=== PATIENT | male | born 1960 | race Caucasian/White ===

== ENCOUNTER 2019-04-03 11:13 | Inpatient (IN) | payer OTHER ==
--- OUTSIDE RECORDS SUMMARY | 2019-04-03 11:28 | XMS REPORT ---
:1960 [facility] [address] [place] [address] Dr. Rivera [address] [place] [id number] Care Team Providers Name Role Phone Unavailable Unavailable Unavailable Problems This patient has no known problems. Allergies, Adverse Reactions, Alerts This patient has no known allergies or adverse reactions. Medications This patient has no known medications.
[2019-04-03 11:38] VITALS: BMI 35.2
[2019-04-03] MEDS ORDERED: ONDANSETRON 4 MG/2 ML VIAL IV PRN (12:04)
[2019-04-03] MEDS ORDERED: ACETAMINOPHEN 500 MG TAB PO PRN (12:04)
[2019-04-03] MEDS ORDERED: VANCOMYCIN/NS 1 gm 1 GM/250 ML BAG IVPB SCH (12:15)
[2019-04-03 12:21] LABS: Urine Appearance CLEAR; Urine Bilirubin NEGATIVE (NEG); Urine Blood NEGATIVE (NEG); Urine Color YELLOW; Urine Glucose 3+ (NEG); Urine Protein NEGATIVE (NEG); Urine Urobilinogen 0.2 mg/dL (0.2-1.0); Urine pH 5.5 (5.0-7.0)
[2019-04-03 12:32] LABS: Urine Microscopic Reflex NO UMIC
[2019-04-03] MEDS ORDERED: OMEPRAZOLE PO PRN (12:36)
[2019-04-03] MEDS ORDERED: ALPRAZOLAM 1 MG TABLET PO PRN ×2 (12:36→19:43)
[2019-04-03] MEDS ORDERED: TRAMADOL HCL 50 MG TAB PO PRN (12:36)
[2019-04-03] MEDS ORDERED: SODIUM BICARBONATE PO PRN (12:36)
[2019-04-03] MEDS ORDERED: CYCLOBENZAPRINE 10 MG TAB PO PRN (12:36)
[2019-04-03] MEDS ORDERED: D50W 25 GM/50 ML SYRINGE IV PRN (12:37)
[2019-04-03] MEDS ORDERED: GLUCAGON 1 MG/VIAL IM PRN (12:37)
[2019-04-03] MEDS: MORPHINE 2 MG/ML SYR IV PRN ×3 (12:44→20:55)
[2019-04-03] MEDS: NA CHLORIDE 0.9% 1,000 ML IV SCH (12:44)
[2019-04-03] MEDS ORDERED: CEFEPIME/SWI 2gm 2 GM/20 ML SYR IV ONE (12:45)
[2019-04-03 12:49] LABS: Absolute Lymphocytes (CBC) 1.9 K/uL (0.7-4.9); Basophils % 0.7 % (0-1.3); Hematocrit 41.1 % (39.6-49.0); MPV 8.1 fL (7.6-11.3); RBC Red Blood Cell Count 4.48 M/uL (4.33-5.43)
[2019-04-03 12:55] LABS: Protime INR 1.11
[2019-04-03] MEDS ORDERED: VANCOMYCIN 2 GM in NA CHLORIDE 0.9% 500 ML IVPB ONE (13:00)
[2019-04-03 13:07] LABS: Potassium 3.8 mmol/L (3.5-5.1)
[2019-04-03] MEDS: INSULIN GLARGINE 100 UNITS/ML SQ SCH (13:19)
--- NOTE | 2019-04-03 13:20 | RAD REPORT ---
EXAM DESCRIPTION: RAD - Chest Single View - 04/03/2019 1:15 pm CLINICAL HISTORY: cough Chest pain. COMPARISON: Chest Pa And Lat (2 Views) dated 11/18/2018; Chest Pa And Lat (2 Views) dated 07/20/2016; CHEST PA AND LAT 2 VIEW dated 11/01/2015 FINDINGS: Portable technique limits examination quality. The lungs are grossly clear. The heart is normal in size. No displaced fractures. IMPRESSION: No acute intrathoracic process suspected.
--- NOTE | 2019-04-03 13:21 | RAD REPORT ---
EXAM DESCRIPTION: RAD - Foot Right 2 View - 04/03/2019 1:14 pm CLINICAL HISTORY: diabetic foot infection 5th toe, r/out free air COMPARISON: Foot Right 3 View dated 10/24/2018; Foot Right 3 View dated 06/13/2018 FINDINGS: Large soft tissue wound is seen along lateral margin the fifth toe. Demineralization along the base of the distal phalanx of the toe laterally is noted likely indicating osteomyelitis. No sub cutaneous gas is seen.
[2019-04-03] MEDS ORDERED: INSULIN -REGULAR HUMAN 50 UNIT/0.5 ML ML SQ SCH (16:30)
[2019-04-03] MEDS: glipiZIDE 5 MG TAB PO SCH (16:59)
[2019-04-03] MEDS: INSULIN -REGULAR HUMAN 50 UNIT/0.5 ML ML SQ SCH ×2 (17:00→20:59)
[2019-04-03] MEDS: CEFEPIME/SWI 2gm 2 GM/20 ML SYR IV SCH (20:55)
[2019-04-03] MEDS: ROSUVASTATIN 10 MG TAB PO SCH (20:55)
[2019-04-03] MEDS ORDERED: CEFEPIME 2 GM VIAL IV SCH (21:00)
[2019-04-04] MEDS: MORPHINE 2 MG/ML SYR IV PRN ×2 (01:41→06:44)
[2019-04-04] MEDS: NA CHLORIDE 0.9% 1,000 ML IV SCH ×3 (01:50→19:00)
--- NOTE | 2019-04-04 02:42 | HP ---
Date of Admission: 04/03/2019 Chief Complaint: Diabetic foot wound on the right. Consultants: Dr. Blanca with Podiatry. Primary Care Physician: Kev Bearden M.D. History Of Present Illness: Patient is a 58-year-old male with past medical history of diabetes, ERIC D, who was in his usual state of health until day of admission when the patient was at wound healing center appointment with Dr. Blanca for his wound on the 5th toe of the right foot. Patient had a beds nadia debridement done by Dr. Blanca; however, he felt that this wound would likely require further surg ical debridement or possible amputation of the 5th digit. Therefore, patient was sent to the [facility] for direct admission for further treatment and workup. Patient does report some drainage, pain, an d redness around the foot and toe, which has been ongoing for the past several days. Patient has not been on antibiotics at home. Patient's symptoms were constant, moderate, progressively worsening. Patient's workup revealed white count of 13,000. Sodium was 133 and glucose of 420. When the patien t was seen, he was awake, alert, oriented x3, in some mild distress. Past Medical History: Diabetes mellitus type 2, insulin requiring. GERD. Surgical History: Right toe great amputation. Right lower extremity tibia-fibula surgery, patient h as titanium rods. Cholecystectomy. Appendectomy. Allergies: NO KNOWN DRUG ALLERGIES. Medications: List reviewed. Social History: Patient denies any tobacco use, alcohol use, or illicit drug use. Patient is marrie d. Family History: Father had heart disease and colon cancer. Mom had hypertension. Review of Systems: Ten-point system reviewed, negative except as per HPI. Physical Examination: Vital Signs: Temperature 98.1, heart rate 91, blood pressure 119/54, respirations 20, O2 98% on room air. General: Awake, alert, oriented x3. Obese male. Slightly ill-appearing. HEENT: Normocephalic, atraumatic. PERRLA. EOMI. Moist mucous membranes. Oropharynx is clear. No rmal dentition. Conjunctivae are anicteric. Neck: Supple. No JVD. Trachea midline. CV: S1, S2. Regular rate and rhythm. Peripheral pulses present. Respiratory: Moving air well bilaterally. No wheezing or stridor. No use of accessory muscles. Gastrointestinal: Abdomen is soft, nontender, nondistended. Positive bowel sounds. No guarding or rigidity. Extremities: No clubbing, cyanosis. Right pedal edema. No calf tenderness. Neurologic: Cranial nerves 2 through 12 intact grossly. No focal neurological deficit. Speech is n ormal. Skin: Right foot great toe amputation, 5th digit ulceration with surrounding erythema. Psychiatric: Mood is okay. Affect is full. Insight and judgment are good. Laboratory Data: UA is negative. Sodium 133, potassium 3.8, chloride 97, CO2 of 26, BUN 11, creatin ine 1.23, glucose 420, calcium 9. INR 1.11. WBC 13.6, H and H 13.9 and 41.1, platelets 279, neutrop hils 77%. Wound cultures and blood cultures obtained. Wound cultures are from wound healing center. Imaging Studies: Foot x-ray shows large soft tissue wound seen along the lateral margin of the 5th t oe, demineralization along the base of the distal phalanx of the toe laterally is noted likely indica ting osteomyelitis, no subcutaneous gas is seen. Chest x-ray shows no acute intrathoracic process. Assessment And Plan: 58-year-old male with: 1.Right 5th toe diabetic ulcer with osteomyelitis seen on plain films. We will continue with broad- spectrum IV antibiotics including vancomycin and cefepime. We will obtain blood cultures and wound c ultures. Dr. Blanca with Podiatry has been consulted. Patient will likely need amputation of the 5th digit. Anticipate surgery in a.m. Patient does have elevated white blood cell count and may need l nora-term IV antibiotics. 2.Hyponatremia, likely pseudohyponatremia from elevated blood glucose level. Continue to monitor. 3.Cellulitis of the right foot. Continue IV antibiotics. Follow up on cultures secondary to diabet ic ulcer. 4.Diabetes mellitus, type 2, insulin requiring with foot infection, ulceration, and hyperglycemia. We will resume home dose of insulin and start on aggressive sliding scale. We will check hemoglobin A1c. Patient has been counseled. 5.Gastroesophageal reflux disease without esophagitis, stable. 6.Obesity, BMI 35. Plan: DVT prophylaxis with Lovenox. Admit patient to Med-Surg, place as inpatient. Length of stay greater than 2 midnights. Anticipate possible long-term IV antibiotics if no amputation is done. Bob cordoba will also need PICC line. We will discuss further with Dr. Blanca. MACKENZIE Voice ID: [id number]
[2019-04-04 04:21] LABS: Absolute Lymphocytes (CBC) 1.7 K/uL (0.7-4.9); Basophils % 0.5 % (0-1.3); Hematocrit 38.6 % (39.6-49.0); Lymphocytes % 16.8 % (15.3-44.8); RBC Red Blood Cell Count 4.23 M/uL (4.33-5.43)
[2019-04-04 04:26] LABS: BUN Blood Urea Nitrogen 9 mg/dL (7-18); Bicarbonate 26 mmol/L (21-32); Glucose Level 182 mg/dL (74-106); Potassium 3.5 mmol/L (3.5-5.1); Sodium Level 139 mmol/L (136-145)
[2019-04-04] MEDS ORDERED: VANCOMYCIN 2 GM in NA CHLORIDE 0.9% 500 ML IVPB SCH (06:00)
[2019-04-04] MEDS ORDERED: LIDOCAINE 1% 20 ML MDV ONE (07:23)
[2019-04-04] MEDS: INSULIN -REGULAR HUMAN 50 UNIT/0.5 ML ML SQ SCH ×4 (07:30→21:27)
[2019-04-04] MEDS ORDERED: LIDOCAINE 2% MPF 5 ML VIAL ONE (07:38)
[2019-04-04] MEDS ORDERED: PROPOFOL 200 MG/20 ML VIAL IV ONE (07:38)
[2019-04-04] MEDS ORDERED: FENTANYL CITR 100 MCG/2 ML ONE (07:38)
[2019-04-04] MEDS ORDERED: MIDAZOLAM HCL 2 MG/2 ML INJ ONE ×2 (07:39)
[2019-04-04] MEDS ORDERED: ONDANSETRON 4 MG/2 ML VIAL ONE (07:39)
[2019-04-04] MEDS: glipiZIDE 5 MG TAB PO SCH ×2 (08:00→16:36)
[2019-04-04] MEDS: INSULIN GLARGINE 100 UNITS/ML SQ SCH (08:00)
--- NOTE | 2019-04-04 08:25 | P.OP ---
Preoperative diagnosis: right fifth digit abscess with osteomyelitis Postoperative diagnosis: same Primary procedure: right fifth digit amputation Anesthesia: mac with 10cc 1:1 0.5% marcaine 1% lidocaine plain Estimated blood loss: <10cc Specimen: bone for pathology Findings: as above Operative Technique: Patient was sedated by nurse road traffic controller and local anesthesia consisting of 10cc 1:1 0.5% marcaine 1% lidocaine plain was injected right lower extremity. Patient was prepped and draped in the usual aseptic manner. Right lower extremity exsanguinated utilizing esmarch bandage and PAT inflated to 250mmHg. Attention directed to right fifth digit at which time cellulitis extending to right midfoot as well as ecchymotic and edematous right fifth digit with ulcertion probing to bone. At this time a racket incision was placed at the base of the fifth digit and the incision was carried straight to bone. At this time utilizing sharp and blunt disection the digit was disarticulated from the mpj. Following this all nonviable tissue was sharply excised utilizing an 15 blade then the wound was irrigated with nss. the wound was packed with 1/2 inch iodoform gauze and a dressing consisting of 4X4s, ABD, Kerlix and ashley wrap applied. PAT deflated with prompt hyperemic response to right lower extremity. PAtient was transferred from OR to recovery with VSS. Complications: None Transferred to: Recovery Room Condition: Good
[2019-04-04] MEDS: HYDROMORPHONE HCL 1 MG/ML INJ ONE ×2 (08:31→08:45)
[2019-04-04] MEDS: SODIUM BICARBONATE PO SCH (09:00)
[2019-04-04] MEDS: OMEPRAZOLE PO SCH (09:00)
[2019-04-04] MEDS: IRBESARTAN 150 MG TAB PO SCH (09:00)
[2019-04-04] MEDS: CETIRIZINE HCL 5 MG TABLET PO SCH (09:00)
[2019-04-04] MEDS: CEFEPIME/SWI 2gm 2 GM/20 ML SYR IV SCH ×2 (09:15→20:35)
--- NOTE | 2019-04-04 11:23 | EKG ---
Test Date: 2019-04-03 Test Time: 13:56:32 Research Quality Assurance Analyst: AM MEASUREMENT RESULTS: Intervals: Rate: 86 WY: 172 QRSD: 126 QT: 384 QTc: 459 [place]: P: 79 W[place]: 172 QRS: 62 T: 55 INTERPRETIVE STATEMENTS: Normal sinus rhythm Nonspecific intraventricular block Abnormal ECG Compared to ECG 07/20/2016 11:31:43 Incomplete right bundle-branch block no longer present Electronically Signed On 04-04-19 11:19:36 CDT by Neal Zee
[2019-04-04] MEDS: HYDROMORPHONE HCL 1 MG/ML INJ IV PRN ×3 (12:12→23:45)
--- NOTE | 2019-04-04 14:35 | P.PN ---
Subjective Date of Service: 04/04/19 Patient seen and examined at bedside. No family at bedside. Chart reviewed and case discussed with nursing staff. Complains of pain in the toe, no other concerns or complaints at this time. Review of Systems 10-point ROS is otherwise unremarkable Physical Examination - Vital Signs Temperature: 97.8 F Blood Pressure: 115/53 Pulse: 84 Respirations: 18 Pulse Ox (%): 98 - Physical Exam General: Alert, In no apparent distress, Oriented x3 HEENT: Atraumatic, PERRLA, EOMI Neck: Supple, JVD not distended Respiratory: Clear to auscultation bilaterally, Normal air movement Cardiovascular: Regular rate/rhythm, Normal S1 S2 Gastrointestinal: Normal bowel sounds, No tenderness Musculoskeletal: No tenderness Integumentary: Other (Status post amputation of 5th toe) Neurological: Normal speech, Normal tone, Normal affect Lymphatics: No axilla or inguinal lymphadenopathy - Studies Laboratory Data (last 24 hrs) 04/04/19 03:41: Sodium 139, Potassium 3.5, BUN 9, Creatinine 0.85, Glucose 182 H 04/04/19 03:41: WBC 10.0 D, Hgb 13.4 L, Hct 38.6 L, Plt Count 262 Assessment And Plan - Plan 58-year-old male with: Right 5th toe diabetic ulcer with osteomyelitis seen on plain films. -We will continue with broad-spectrum IV antibiotics including vancomycin and cefepime. -We will follow up on blood cultures and wound cultures. -Dr. Blanca with Podiatry has been consulted. Patient will status post amputation of the 5th digit, POD#0. -he will return back to the OR on with Dr. Blanca Hyponatremia Resolved likely pseudohyponatremia from elevated blood glucose level. -Continue to monitor. Cellulitis of the right foot. Continue IV antibiotics. Follow up on cultures secondary to diabetic ulcer. Diabetes mellitus, type 2, insulin requiring with foot infection, ulceration, and hyperglycemia. We will resume home dose of insulin and start on aggressive sliding scale. We will check hemoglobin A1c. Patient has been counseled. Gastroesophageal reflux disease without esophagitis, stable. Obesity, BMI 35. DVT prophylaxis with Lovenox. Plan: Pending symptomatic improvement, return to the operating room on . Further IV antibiotic plans will depend on cultures as well as improvement.
[2019-04-04] MEDS: HYDROCODONE/APAP 7.5/325 MG TAB PO PRN ×2 (16:35→20:35)
[2019-04-04] MEDS: VANCOMYCIN 2 GM in NA CHLORIDE 0.9% 500 ML IVPB SCH (17:40)
[2019-04-04] MEDS: ROSUVASTATIN 10 MG TAB PO SCH (20:38)
[2019-04-05] MEDS: HYDROCODONE/APAP 7.5/325 MG TAB PO PRN ×4 (03:38→20:26)
[2019-04-05 04:32] LABS: Potassium 4.1 mmol/L (3.5-5.1)
[2019-04-05 04:43] LABS: Absolute Lymphocytes (CBC) 2.1 K/uL (0.7-4.9); Basophils % 0.4 % (0-1.3); Hematocrit 36.1 % (39.6-49.0); Lymphocytes % 24.6 % (15.3-44.8); MPV 8.3 fL (7.6-11.3); RBC Red Blood Cell Count 3.92 M/uL (4.33-5.43)
[2019-04-05] MEDS: NA CHLORIDE 0.9% 1,000 ML IV SCH ×3 (05:00→15:00)
[2019-04-05] MEDS: VANCOMYCIN 2 GM in NA CHLORIDE 0.9% 500 ML IVPB SCH ×2 (06:05→17:52)
[2019-04-05] MEDS: HYDROMORPHONE HCL 1 MG/ML INJ IV PRN ×4 (06:08→22:18)
[2019-04-05] MEDS: IRBESARTAN 150 MG TAB PO SCH (08:53)
[2019-04-05] MEDS: glipiZIDE 5 MG TAB PO SCH ×2 (08:53→17:17)
[2019-04-05] MEDS: INSULIN -REGULAR HUMAN 50 UNIT/0.5 ML ML SQ SCH ×4 (08:53→20:43)
[2019-04-05] MEDS: INSULIN GLARGINE 100 UNITS/ML SQ SCH (08:54)
[2019-04-05] MEDS: CEFEPIME/SWI 2gm 2 GM/20 ML SYR IV SCH ×2 (08:54→20:26)
[2019-04-05] MEDS: SODIUM BICARBONATE PO SCH (08:56)
[2019-04-05] MEDS: OMEPRAZOLE PO SCH (08:56)
[2019-04-05] MEDS: CETIRIZINE HCL 5 MG TABLET PO SCH (09:06)
--- NOTE | 2019-04-05 11:12 | P.PN ---
Subjective Date of Service: 04/05/19 Subjective: No C/O voiced, Improving Patient seen and examined at bedside. No family at bedside. Chart reviewed and case discussed with nursing staff. Complains of pain in the toe; pain medications not adequate at this time. No Other concerns or complaints this morning. No acute events noted overnight. Review of Systems 10-point ROS is otherwise unremarkable Physical Examination - Vital Signs Temperature: 97.5 F Blood Pressure: 131/65 Pulse: 75 Respirations: 16 Pulse Ox (%): 97 - Physical Exam General: Alert, In no apparent distress, Oriented x3 HEENT: Atraumatic, PERRLA, EOMI Neck: Supple, JVD not distended Respiratory: Clear to auscultation bilaterally, Normal air movement Cardiovascular: Regular rate/rhythm, Normal S1 S2 Gastrointestinal: Normal bowel sounds, No tenderness Musculoskeletal: No tenderness Integumentary: Other (Bandage clean/dry/intact) Neurological: Normal speech, Normal tone, Normal affect Lymphatics: No axilla or inguinal lymphadenopathy - Studies Laboratory Data (last 24 hrs) 04/05/19 03:55: Sodium 139, Potassium 4.1, BUN 9, Creatinine 0.96, Glucose 195 H 04/05/19 03:35: WBC 8.3 D, Hgb 12.5 L, Hct 36.1 L, Plt Count 259 Assessment And Plan - Plan 58-year-old male with: Right 5th toe diabetic ulcer with osteomyelitis seen on plain films. -We will continue with broad-spectrum IV antibiotics including vancomycin and cefepime. -We will follow up on blood cultures and wound cultures. No growth 24 hr -Dr. Blanca with Podiatry has been consulted. Patient is status post amputation of the 5th digit, POD#1. -he will return back to the OR on with Dr. Blanca -pain medications adjusted Hyponatremia Resolved likely pseudohyponatremia from elevated blood glucose level. -Continue to monitor. Cellulitis of the right foot. Continue IV antibiotics. Follow up on cultures secondary to diabetic ulcer. Diabetes mellitus, type 2, insulin requiring with foot infection, ulceration, and hyperglycemia. We will resume home dose of insulin and start on aggressive sliding scale. Hemoglobin A1c elevated at 9.3. Patient has been counseled. Gastroesophageal reflux disease without esophagitis, stable. Obesity, BMI 35. DVT prophylaxis with Lovenox. Plan: Pending symptomatic improvement, return to the operating room on . Further IV antibiotic plans will depend on cultures as well as improvement.
--- NOTE | 2019-04-05 11:43 | P.PN ---
Subjective Date of Service: 04/05/19 Chief Complaint: s/p 1 day right fifth digit amputation Subjective: Tolerating diet, Doing well Review of Systems 10-point ROS is otherwise unremarkable Physical Examination - Vital Signs Temperature: 97.5 F Blood Pressure: 131/65 Pulse: 75 Respirations: 16 Pulse Ox (%): 97 - Physical Exam General: Alert, In no apparent distress, Oriented x3 Cardiovascular: No edema, Normal pulses Capillary refill: <2 Seconds Musculoskeletal: No clubbing, No swelling, No contractures, No erythema, No tenderness, No warmth Integumentary: Other (dressing removed right fifth digit. Decreased erythema and edema right foot. No purulence, no necrotic tissue. 100% granulation. Wound plantar right foot is stable and decreasing in depth. ) Neurological: Abnormal sensation - Studies Laboratory Data (last 24 hrs) 04/05/19 03:55: Sodium 139, Potassium 4.1, BUN 9, Creatinine 0.96, Glucose 195 H 04/05/19 03:35: WBC 8.3 D, Hgb 12.5 L, Hct 36.1 L, Plt Count 259 Assessment And Plan - Current Problems (Diagnosis) (1) Diabetic ulcer of right foot Current Visit: No Status: Acute - Plan Patient scheduled for closure of wound tomorrow morning. To be NPO past midnight.
[2019-04-05] MEDS: ROSUVASTATIN 10 MG TAB PO SCH (20:27)
[2019-04-06] MEDS: NA CHLORIDE 0.9% 1,000 ML IV SCH ×3 (00:35→11:00)
[2019-04-06] MEDS: HYDROCODONE/APAP 7.5/325 MG TAB PO PRN ×2 (00:35→12:29)
[2019-04-06 04:34] LABS: Absolute Lymphocytes (CBC) 2.1 K/uL (0.7-4.9); Hematocrit 37.5 % (39.6-49.0); Lymphocytes % 27.5 % (15.3-44.8); RBC Red Blood Cell Count 4.13 M/uL (4.33-5.43)
[2019-04-06 04:46] LABS: BUN Blood Urea Nitrogen 8 mg/dL (7-18); Bicarbonate 28 mmol/L (21-32); Glucose Level 186 mg/dL (74-106); Potassium 3.7 mmol/L (3.5-5.1); Sodium Level 140 mmol/L (136-145)
[2019-04-06] MEDS: HYDROMORPHONE HCL 1 MG/ML INJ IV PRN (05:30)
[2019-04-06] MEDS ORDERED: VANCOMYCIN 2.25 GM in NA CHLORIDE 0.9% 500 ML IVPB SCH (06:00)
[2019-04-06] MEDS ORDERED: PROPOFOL 200 MG/20 ML VIAL IV ONE (07:17)
[2019-04-06] MEDS ORDERED: LIDOCAINE 2% MPF 5 ML VIAL ONE (07:17)
[2019-04-06] MEDS ORDERED: FENTANYL CITR 100 MCG/2 ML ONE (07:17)
[2019-04-06] MEDS ORDERED: MIDAZOLAM HCL 2 MG/2 ML INJ ONE (07:17)
[2019-04-06] MEDS ORDERED: LIDOCAINE 1% MPF 30 ML VIAL ONE (07:24)
[2019-04-06] MEDS ORDERED: NA CHLORIDE 0.9% 1,000 ML ONE (07:35)
[2019-04-06] MEDS ORDERED: ROCURONIUM 50 MG/5 ML VIAL IV ONE (07:41)
[2019-04-06] MEDS ORDERED: BUPIVACAINE 0.5% PF 10 ML VIAL ONE (07:44)
[2019-04-06] MEDS ORDERED: GLYCOPYRROLATE 0.2 MG/ML SYR ONE (08:11)
[2019-04-06] MEDS ORDERED: NEOSTIGMINE 1 MG/ML -10 ML VIAL ONE (08:14)
[2019-04-06] MEDS ORDERED: ONDANSETRON 4 MG/2 ML VIAL ONE (08:25)
--- NOTE | 2019-04-06 08:25 | P.OP ---
Preoperative diagnosis: right foot abscess Postoperative diagnosis: same Primary procedure: right foot wound closure via advancement flap Anesthesia: general with 10cc 0.5% marcaine Estimated blood loss: <10cc Specimen: none Findings: as above Operative Technique: Patient was sedated by nurse gas manager and placed under general anesthesia. Extremity was prepped and draped in the usual aseptic manner. Attention was directed to lateral aspect of right foot where previous amputation was performed. The wound was irrigated with normal sterile saline and revision of the medial and lateral flap was performed as well as undermining to allow for closure without tension. Closure obtained utilizing 2-0 and 3-0 prolene. A sterile dressing consisting of adaptic, 4X4s, Kerlix and ashley wrap was applied. Patient was transferred from OR to recovery with VSS Complications: None Transferred to: Recovery Room Condition: Good
[2019-04-06] MEDS: OMEPRAZOLE PO SCH (09:00)
[2019-04-06] MEDS: SODIUM BICARBONATE PO SCH (09:00)
[2019-04-06] MEDS: IRBESARTAN 150 MG TAB PO SCH (10:03)
[2019-04-06] MEDS: INSULIN -REGULAR HUMAN 50 UNIT/0.5 ML ML SQ SCH ×2 (10:04→12:30)
[2019-04-06] MEDS: CETIRIZINE HCL 5 MG TABLET PO SCH (10:04)
[2019-04-06] MEDS: glipiZIDE 5 MG TAB PO SCH (10:04)
[2019-04-06] MEDS: INSULIN GLARGINE 100 UNITS/ML SQ SCH (10:05)
[2019-04-06] MEDS: CEFEPIME/SWI 2gm 2 GM/20 ML SYR IV SCH (10:14)
[2019-04-06 11:54] VITALS: BP 133/66; TEMP 97
[2019-04-06 14:27] VITALS: O2SAT 96
--- NOTE | 2019-04-08 12:00 | P.DS ---
Admission Date: 04/03/19 Discharge Date: 04/06/19 Disposition: ROUTINE DISCHARGE Discharge Condition: GOOD Reason for Admission: s/p 1 day right fifth digit amputation Consultations: Dr. Blanca, Podiatry Procedures: 04/04/2019: Right 5th great toe amputation 04/06/2019: Right 5th great toe, wound closure Brief History of Present Illness: Patient is a 58-year-old male with past medical history of diabetes, GERD, who was in his usual state of health until day of admission when the patient was at wound healing center appointment with Dr. Blanca for his wound on the 5th toe of the right foot. Patient had a bedside debridement done by Dr. Blanca; however, he felt that this wound would likely require further surgical debridement or possible amputation of the 5th digit. Therefore, patient was sent to the hospital for direct admission for further treatment and workup. Patient does report some drainage, pain, and redness around the foot and toe, which has been ongoing for the past several days. Patient has not been on antibiotics at home. Patient's symptoms were constant, moderate, progressively worsening. Patient's workup revealed white count of 13,000. Sodium was 133 and glucose of 420. When the patient was seen, he was awake, alert, oriented x3, in some mild distress. Hospital Course: Patient was admitted for right 5th toe diabetic ulcer with osteomyelitis though seen on plain films. He was started on IV antibiotics with vancomycin and cefepime. Podiatry was consulted, patient underwent right 5th great toe amputation. He tolerated the procedure well. He was monitored in the hospital and patient returned back to the OR for wound closure prior to discharge. He also tolerated the procedure well. His symptoms improved. He was then discharged home on oral antibiotics, Levaquin 500 q.day for 10 days. His cultures did remain negative. He will follow up with Dr. Blanca in his clinic in a couple of weeks. He otherwise did well throughout the stay. Prior to discharge, he was alert oriented x3, in no acute distress and doing well clinically. He was cleared for discharge by podiatry. His diagnoses/treatment plan was explained to him, all questions were answered and he verbalized understanding. He was then discharged home in a safe stable manner. Vital Signs/Physical Exam: Temp Pulse Resp BP Pulse Ox 97 F 82 18 133/66 96 04/06/19 11:52 04/06/19 11:52 04/06/19 13:29 04/06/19 11:52 04/06/19 13:29 General: Alert, In no apparent distress HEENT: Atraumatic, PERRLA, EOMI Neck: Supple, JVD not distended Respiratory: Clear to auscultation bilaterally, Normal air movement Cardiovascular: Regular rate/rhythm, Normal S1 S2 Gastrointestinal: Normal bowel sounds, No tenderness Musculoskeletal: No tenderness Integumentary: No rashes Neurological: Normal speech, Normal tone, Normal affect Lymphatics: No axilla or inguinal lymphadenopathy Laboratory Data at Discharge: WBC 7.6 K/uL (4.3-10.9) 04/06/19 03:54 Hgb 13.4 g/dL (13.6-17.9) L 04/06/19 03:54 Hct 37.5 % (39.6-49.0) L 04/06/19 03:54 Plt Count 278 K/uL (152-406) 04/06/19 03:54 PT 13.1 SECONDS (9.5-12.5) H 04/03/19 12:20 INR 1.11 04/03/19 12:20 Sodium 140 mmol/L (136-145) 04/06/19 03:54 Potassium 3.7 mmol/L (3.5-5.1) 04/06/19 03:54 BUN 8 mg/dL (7-18) 04/06/19 03:54 Creatinine 0.78 mg/dL (0.55-1.3) 04/06/19 03:54 Glucose 186 mg/dL (74-106) H 04/06/19 03:54 Home Medications: Tramadol HCl [Ultram] 50 mg PO Q8H PRN #30 tablet 07/19/16 ALPRAZolam [Xanax] 1 mg PO PRN PRN MDD 1mg 04/25/18 Insulin Degludec [Tresiba Flextouch U-100] 30 unit SQ AC 04/25/18 Metformin HCl [Metformin HCl ER] 1,000 mg PO BID 04/25/18 glipiZIDE [Glipizide] 5 mg PO BID 04/25/18 Cetirizine HCl [Zyrtec] 5 mg PO DAILY 04/03/19 Cyclobenzaprine [Flexeril] 10 mg PO TID PRN 04/03/19 Irbesartan [Avapro] 150 mg PO DAILY 04/03/19 Omeprazole/Sodium Bicarbonate [Zegerid 20 mg Capsule] 1 each PO PRN PRN Rosuvastatin [Crestor] 10 mg PO BEDTIME 04/03/19 Semaglutide [Ozempic] 0.5 mg SQ EVERY 7TH DAY 04/03/19 Codeine/APAP [Tylenol W/Codeine #3 tab] 1 tab PO Q6HP PRN #15 tab 04/06/19 levoFLOXacin [Levaquin] 500 mg PO DAILY #10 tab 04/06/19 New Medications: Codeine/APAP [Tylenol W/Codeine #3 tab] 1 tab PO Q6HP PRN #15 tab PRN Reason: Pain levoFLOXacin [Levaquin] 500 mg PO DAILY #10 tab Diet: ADA Activity: Ad live Followup: Kenyon Blanca JR, DPM [ASSOCIATE-ACTIVE - CAN ADMIT] - 04/11/19 (data management engineer- Call to schedule an appointment ) Time spent managing pt's care (in minutes): 55
== END 2019-04-06 16:18 | disposition home or self-care (01) | DRG 617 ==
LOC: 4TH 11:13
PROVIDERS: ADMIT Family Medicine; ATTEND Family Medicine
PROC: 0Y6X0Z0 Detachment at Right 5th Toe, Complete, Open Approach (ICD-10-PCS; principal; 2019-04-04 07:45)
DX: E11.69 Type 2 diabetes mellitus with other specified complication (principal); M86.171 Other acute osteomyelitis, right ankle and foot; E87.1 Hypo-osmolality and hyponatremia; L03.115 Cellulitis of right lower limb; E11.621 Type 2 diabetes mellitus with foot ulcer; L97.519 Non-pressure chronic ulcer of other part of right foot with unspecified severity; E11.65 Type 2 diabetes mellitus with hyperglycemia; Z79.4 Long term (current) use of insulin; K21.9 Gastro-esophageal reflux disease without esophagitis; E66.9 Obesity, unspecified; Z68.35 Body mass index [BMI] 35.0-35.9, adult; Z89.411 Acquired absence of right great toe
CPT/HCPCS: 36415; 71045; 80048; 80202; 81003; 82962; 83036; 85025; 85610; 87040; 88305; 88311; 93005; 94760; J0692; J1170; J2250; J2270; J2405; J2704; J2710; J3010; J7030